=== PATIENT | male | born 1990 | race Caucasian/White ===

== ENCOUNTER 2023-06-07 13:54 | Inpatient (IN) | payer OTHER ==
[2023-06-07 08:44] VITALS: BMI 22.4
[~2023-06-07 13:54] MED LIST: ACETAMINOPHEN 325 MG TABLET (FP) PO PRN; BENZOCAINE/MENTHOL (CHLORASEPTIC ) LOZENGE MM PRN; BENZONATATE 200 MG CAPSULE PO PRN; LOPERAMIDE HCL 2 MG CAPSULE PO PRN; MAG HYDROX/AL HYDROX/SIMETH 30 ML UNIT-DOSE CUP PO PRN; MAGNESIUM HYDROX 2400MG/30ML ORAL SUSPENSION 30 ML CUP PO PRN; NALOXONE HCL (KLOXXADO) 8 MG SPRAY NS PRN; NALOXONE HCL 0.4 MG/ML VIAL IM PRN; NICOTINE POLACRILEX 2 MG GUM BUC PRN; POLYETHYLENE GLYCOL (HEALTHYLAX) 3350 17 GM PACKET PO PRN; guaiFENesin 600 MG TABLET.ER (FP) PO PRN; hydrOXYzine PAMOATE 25 MG CAPSULE (FP) PO PRN
[2023-06-07] MEDS ORDERED: TUBERCULIN PPD 5 TU/0.1ML VIAL ID ONE ×2 (15:33→16:31)
[2023-06-07] MEDS: TUBERCULIN PPD 5 TU/0.1ML SYRINGE (IN PATIENT USE ONLY) ID ONE (15:35)
[2023-06-07] MEDS: PRENATAL VITAMINS W/ FOLIC ACID TABLET (FP) PO SCH (15:40)
[2023-06-07] MEDS: MELATONIN 5 MG TABLETS PO SCH (21:33)
[2023-06-07] MEDS: THIAMINE HCL 100 MG TABLET (FP) PO SCH (21:34)
[2023-06-07 23:00] LABS: URINE APPEARANCE CLEAR; URINE BILIRUBIN NEGATIVE (NEGATIVE); URINE COLOR YELLOW; URINE GLUCOSE (UA) NEGATIVE (NEGATIVE); URINE KETONE TRACE (NEGATIVE); URINE LEUK ESTERASE NEGATIVE (NEGATIVE); URINE NITRITE NEGATIVE (NEGATIVE); URINE PROTEIN NEGATIVE (NEGATIVE)
[2023-06-08 10:58] LABS: POTASSIUM 4.8 mmol/L (3.5-5.1)
[2023-06-08 10:59] LABS: HEMOGLOBIN 13.3 GM/dL (11.7-16.9); MCH 27.4 pg (25.7-33.7); MCHC 32.5 g/dl (32.0-35.9); MEAN CELL VOLUME 84.2 fl (80-96); MEAN PLT VOLUME 8.1 fl (7.5-11.1); PLATELET COUNT 170 10^3/uL (134-434); RBC 4.86 M/mm3 (4.00-5.60); RDW 13.6 % (11.9-15.9); WHITE BLOOD COUNT 4.9 K/mm3 (4.0-10.0)
[2023-06-08 11:00] LABS: CALCIUM 8.2 mg/dL (8.5-10.1)
[2023-06-08 11:01] LABS: BLOOD UREA NITROGEN 18.7 mg/dL (7-18)
[2023-06-08 11:04] LABS: CREATININE 0.8 mg/dL (0.55-1.3)
[2023-06-08 11:06] LABS: BILIRUBIN,TOTAL 0.2 mg/dL (0.2-1); TOT PROT 5.2 g/dl (6.4-8.2)
[2023-06-08] MEDS: IBUPROFEN 600 MG TABLET (FP) PO PRN (19:51)
[2023-06-13] MEDS: BENZOYL PEROXIDE 5% 60 GM GEL..GRAM. TP SCH (13:21)
[2023-06-13] MEDS: MELATONIN 5 MG TABLETS PO SCH (21:39)
[2023-06-14] MEDS: BACLOFEN 10 MG TABLET (FP) PO SCH (09:49)
[2023-06-14] MEDS ORDERED: POVIDONE-IODINE 10% SOLN 118 ML BOTTLE TP SCH (10:00)
[2023-06-14] MEDS: TOLNAFTATE 1% CREAM 15 GM TUBE TP SCH (21:38)
[2023-06-15] MEDS: MIRTAZAPINE 15 MG TABLET (FP) PO SCH (21:42)
[2023-06-19] MEDS: IBUPROFEN 400 MG TABLET (FP) PO PRN (14:36)
[2023-06-21 07:19] VITALS: BP 116/66; PULSE 67; RESP 18; TEMP 97.6
== END 2023-06-21 10:00 | disposition home or self-care (01) | DRG 772 ==
LOC: YASAS 13:54 → Y5N 14:28
PROVIDERS: ADMIT Allergy & Immunology; ATTEND Psychiatry & Neurology Pain Medicine
PROC: HZ42ZZZ Group Counseling for Substance Abuse Treatment, Cognitive-Behavioral (ICD-10-PCS; principal; 2023-06-07)
DX: F10.20 Alcohol dependence, uncomplicated (principal); F14.20 Cocaine dependence, uncomplicated; F17.210 Nicotine dependence, cigarettes, uncomplicated; F19.282 Other psychoactive substance dependence with psychoactive substance-induced sleep disorder; F19.24 Other psychoactive substance dependence with psychoactive substance-induced mood disorder; F32.A Depression, unspecified; G47.00 Insomnia, unspecified; B35.3 Tinea pedis; M79.674 Pain in right toe(s); Z28.310 Unvaccinated for COVID-19; Z28.9 Immunization not carried out for unspecified reason; Z59.00 Homelessness unspecified
CPT/HCPCS: 36415; 80053; 80305; 81003; 85027; 86780; 87635; 87811; 93005; 93010; J0475

== ENCOUNTER 2023-10-15 09:51 | Inpatient (IN) | payer OTHER ==
[2023-10-15 10:38] VITALS: BMI 25.3
[2023-10-15] MEDS ORDERED: NALOXONE (NARCAN) HCL 4 MG/0.1 ML SPRAY NS PRN (11:47)
[2023-10-15] MEDS ORDERED: BENZONATATE 200 MG CAPSULE PO PRN (11:47)
[2023-10-15] MEDS ORDERED: BISMUTH SUBSALICYLATE 524 MG/30 ML PO PRN (11:47)
[2023-10-15] MEDS ORDERED: IBUPROFEN 400 MG TABLET (FP) PO PRN (11:47)
[2023-10-15] MEDS ORDERED: LOPERAMIDE HCL 2 MG CAPSULE PO PRN (11:47)
[2023-10-15] MEDS ORDERED: MAG HYDROX/AL HYDROX/SIMETH 30 ML UNIT-DOSE CUP PO PRN (11:47)
[2023-10-15] MEDS ORDERED: BENZOCAINE/MENTHOL (CHLORASEPTIC ) LOZENGE MM PRN (11:47)
[2023-10-15] MEDS ORDERED: DICYCLOMINE HCL 10 MG CAPSULE PO PRN (11:47)
[2023-10-15] MEDS ORDERED: cloNIDine HCL 0.1 MG TABLET PO PRN (11:47)
[2023-10-15] MEDS ORDERED: NALOXONE HCL 0.4 MG/ML VIAL IM PRN (11:47)
[2023-10-15] MEDS ORDERED: guaiFENesin 600 MG TABLET.ER (FP) PO PRN (11:47)
[2023-10-15] MEDS ORDERED: IBUPROFEN 600 MG TABLET (FP) PO PRN (11:47)
[2023-10-15] MEDS ORDERED: ONDANSETRON *ODT* 4 MG TABLET SL PRN (11:47)
[2023-10-15] MEDS: methaDONE HCL 10 MG TABLET (FOR DETOX USE ONLY) PO ONE (12:43)
[2023-10-15] MEDS: THIAMINE 100 MG TABLET PO SCH (21:21)
[2023-10-15] MEDS: METHOCARBAMOL 500 MG TABLET PO PRN (21:21)
[2023-10-15] MEDS: MELATONIN 5 MG TABLETS PO SCH (21:21)
[2023-10-16 08:50] LABS: HEMATOCRIT 38.7 % (35.4-49); MCH 27.6 pg (25.7-33.7); MCHC 33.6 g/dl (32.0-35.9); MEAN PLT VOLUME 7.8 fl (7.5-11.1); PLATELET COUNT 233 10^3/uL (134-434); RBC 4.72 M/mm3 (4.00-5.60); RDW 13.6 % (11.9-15.9); WHITE BLOOD COUNT 5.9 K/mm3 (4.0-10.0)
[2023-10-16 09:04] LABS: CHLORIDE 106 mmol/L (98-107); POTASSIUM 4.7 mmol/L (3.5-5.1); SODIUM 140 mmol/L (136-145)
[2023-10-16 09:07] LABS: CALCIUM 8.6 mg/dL (8.5-10.1)
[2023-10-16 09:08] LABS: ALBUMIN 3.2 g/dl (3.4-5.0); ANION GAP 3 mmol/L (4-13); BLOOD UREA NITROGEN 16.3 mg/dL (7-18); CO2 32 mmol/L (21-32)
[2023-10-16 09:10] LABS: GLUCOSE,RANDOM 82 mg/dL (74-106)
[2023-10-16 09:11] LABS: CREATININE 0.9 mg/dL (0.55-1.3); SGOT/AST 19 U/L (15-37); SGPT/ALT 34 U/L (13-61)
[2023-10-16 09:13] LABS: BILIRUBIN,TOTAL 0.4 mg/dL (0.2-1); TOT PROT 5.5 g/dl (6.4-8.2)
[2023-10-16 09:14] LABS: ALK PHOS 63 U/L (45-117)
[2023-10-16] MEDS: PRENATAL VITAMINS W/ FOLIC ACID TABLET (FP) PO SCH (10:08)
[2023-10-16] MEDS: hydrOXYzine PAMOATE 25 MG CAPSULE (FP) PO PRN (10:08)
[2023-10-16] MEDS ORDERED: NICOTINE POLACRILEX 2 MG GUM BC PRN (15:25)
[2023-10-16] MEDS: NICOTINE 14 MG/24 HOURS TOPICAL PATCH TD SCH (15:41)
[2023-10-16] MEDS: MAGNESIUM HYDROX 2400MG/30ML ORAL SUSPENSION 30 ML CUP PO PRN (19:01)
[2023-10-16] MEDS: MIRTAZAPINE 15 MG TABLET (FP) PO SCH (21:41)
[2023-10-17] MEDS: methaDONE HCL 10 MG TABLET (FOR DETOX USE ONLY) PO ONE (10:09)
[2023-10-17] MEDS: POLYETHYLENE GLYCOL (HEALTHYLAX) 3350 17 GM PACKET PO PRN (17:48)
[2023-10-17] MEDS: ACETAMINOPHEN 325 MG TABLET (FP) PO PRN (17:49)
[2023-10-19] MEDS: methaDONE HCL 10 MG TABLET (FOR DETOX USE ONLY) PO ONE (09:47)
[2023-10-20 09:03] VITALS: BP 130/78; PULSE 83; RESP 17; TEMP 97.9
== END 2023-10-20 10:08 | disposition home or self-care (01) | DRG 773 ==
LOC: YASAS 09:51 → Y3N 12:10
PROVIDERS: ADMIT Allergy & Immunology; ATTEND Surgery
PROC: HZ2ZZZZ Detoxification Services for Substance Abuse Treatment (ICD-10-PCS; principal; 2023-10-15)
DX: F11.23 Opioid dependence with withdrawal (principal); F10.20 Alcohol dependence, uncomplicated; F12.20 Cannabis dependence, uncomplicated; F17.210 Nicotine dependence, cigarettes, uncomplicated; F19.24 Other psychoactive substance dependence with psychoactive substance-induced mood disorder; G47.00 Insomnia, unspecified
CPT/HCPCS: 36415; 80053; 80305; 80307; 85027; 86780; 93005; 93010

== ENCOUNTER 2024-04-27 14:59 | Inpatient (IN) | payer OTHER ==
[2024-04-27 15:33] VITALS: BMI 23.5
[2024-04-27] MEDS ORDERED: BENZONATATE 200 MG CAPSULE PO PRN (15:50)
[2024-04-27] MEDS ORDERED: P-EPHED 60MG/TRIPROLIDI 2.5MG TABLET PO PRN (15:50)
[2024-04-27] MEDS ORDERED: DICYCLOMINE HCL 10 MG CAPSULE PO PRN (15:50)
[2024-04-27] MEDS ORDERED: NALOXONE (NARCAN) HCL 4 MG/0.1 ML SPRAY NS PRN (15:50)
[2024-04-27] MEDS ORDERED: BISMUTH SUBSALICYLATE 524 MG/30 ML PO PRN (15:50)
[2024-04-27] MEDS ORDERED: METHOCARBAMOL 500 MG TABLET PO PRN (15:50)
[2024-04-27] MEDS ORDERED: LOPERAMIDE HCL 2 MG CAPSULE PO PRN (15:50)
[2024-04-27] MEDS ORDERED: ONDANSETRON *ODT* 4 MG TABLET SL PRN (15:50)
[2024-04-27] MEDS ORDERED: MAGNESIUM HYDROX 2400MG/30ML ORAL SUSPENSION 30 ML CUP PO PRN (15:50)
[2024-04-27] MEDS ORDERED: BENZOCAINE/MENTHOL (CHLORASEPTIC ) LOZENGE MM PRN (15:50)
[2024-04-27] MEDS ORDERED: NICOTINE POLACRILEX 2 MG GUM BUC PRN (15:50)
[2024-04-27] MEDS ORDERED: MAG HYDROX/AL HYDROX/SIMETH 30 ML UNIT-DOSE CUP PO PRN (15:50)
[2024-04-27] MEDS ORDERED: NICOTINE POLACRILEX 2 MG LOZENGE BC PRN (15:50)
[2024-04-27] MEDS ORDERED: IBUPROFEN 400 MG TABLET (FP) PO PRN (15:50)
[2024-04-27] MEDS: IBUPROFEN 600 MG TABLET (FP) PO PRN (19:37)
[2024-04-27] MEDS: guaiFENesin 600 MG TABLET.ER (FP) PO PRN (19:37)
[2024-04-27] MEDS: hydrOXYzine PAMOATE 25 MG CAPSULE (FP) PO PRN (19:37)
[2024-04-27] MEDS ORDERED: cloNIDine HCL 0.1 MG TABLET PO PRN (22:07)
[2024-04-27] MEDS ORDERED: methaDONE HCL 10 MG TABLET (FOR DETOX USE ONLY) PO PRN (22:07)
[2024-04-27] MEDS: MELATONIN 5 MG TABLETS PO SCH (22:34)
[2024-04-27] MEDS: THIAMINE 100 MG TABLET PO SCH (22:34)
[2024-04-27] MEDS: methaDONE HCL 10 MG TABLET (FOR DETOX USE ONLY) PO ONE (22:35)
[2024-04-28 08:35] LABS: POTASSIUM 4.3 mmol/L (3.5-5.1)
[2024-04-28 08:41] LABS: HEMOGLOBIN 12.6 GM/dL (11.7-16.9); MCH 26.5 pg (25.7-33.7); MCHC 31.5 g/dl (32.0-35.9); MEAN CELL VOLUME 84.2 fl (80-96); MEAN PLT VOLUME 8.5 fl (7.5-11.1); PLATELET COUNT 233 10^3/uL (134-434); RBC 4.75 M/mm3 (4.00-5.60); RDW 13.9 % (11.9-15.9); WHITE BLOOD COUNT 4.1 K/mm3 (4.0-10.0)
[2024-04-28 08:55] LABS: ALBUMIN 3.3 g/dl (3.4-5.0); BLOOD UREA NITROGEN 13.1 mg/dL (7-18); CALCIUM 8.7 mg/dL (8.5-10.1)
[2024-04-28 08:58] LABS: CREATININE 0.8 mg/dL (0.55-1.3)
[2024-04-28 08:59] LABS: BILIRUBIN,TOTAL 0.2 mg/dL (0.2-1); TOT PROT 5.8 g/dl (6.4-8.2)
[2024-04-28] MEDS: PRENATAL VITAMINS W/ FOLIC ACID TABLET (FP) PO SCH (10:05)
[2024-04-28] MEDS: NICOTINE 14 MG/24 HOURS TOPICAL PATCH TD SCH (12:05)
[2024-04-28] MEDS: traZODone HCL 50 MG TABLET (FP) PO PRN (22:06)
[2024-04-29] MEDS: POLYETHYLENE GLYCOL (HEALTHYLAX) 3350 17 GM PACKET PO PRN (06:02)
[2024-04-29] MEDS: methaDONE HCL 10 MG TABLET (FOR DETOX USE ONLY) PO ONE (09:49)
[2024-04-30] MEDS: ACETAMINOPHEN 325 MG TABLET (FP) PO PRN (08:15)
[2024-04-30] MEDS: traZODone HCL 100 MG TABLET (FP) PO PRN (22:30)
[2024-05-01] MEDS: methaDONE HCL 10 MG TABLET (FOR DETOX USE ONLY) PO ONE (10:11)
[2024-05-01 17:02] VITALS: RESP 18
[2024-05-02] MEDS: NALOXONE (NYS OPIOID OVERDOSE PROGRAM) 4 MG/0.1 ML SPRAY NS SCH (08:38)
[2024-05-02 12:32] VITALS: BP 103/66; PULSE 59; TEMP 98
== END 2024-05-02 11:49 | disposition other institution (70) | DRG 773 ==
LOC: YASAS 14:59 → Y3N 16:42
PROVIDERS: ADMIT Allergy & Immunology; ATTEND Allergy & Immunology
PROC: HZ2ZZZZ Detoxification Services for Substance Abuse Treatment (ICD-10-PCS; principal; 2024-04-27)
DX: F11.23 Opioid dependence with withdrawal (principal); F10.20 Alcohol dependence, uncomplicated; F14.20 Cocaine dependence, uncomplicated; F15.10 Other stimulant abuse, uncomplicated; F17.210 Nicotine dependence, cigarettes, uncomplicated; F19.282 Other psychoactive substance dependence with psychoactive substance-induced sleep disorder; F32.A Depression, unspecified
CPT/HCPCS: 36415; 80053; 80305; 80307; 85027; 87811